=== PATIENT | male | born 1990 | race Caucasian/White ===

== ENCOUNTER 2022-01-19 08:06 | Emergency (ER) | payer BC, OTHER ==
[~2022-01-19] VITALS: Ht 193 cm; Wt 82.7 kg
--- NOTE | 2022-01-19 10:22 | NUR ---
Pt moved into ER bed 1
[2022-01-19 11:38] VITALS: BP 97/64
== END 2022-01-19 11:45 | disposition home or self-care (01) ==
LOC: ER 08:07
DX: S01.01XA Laceration without foreign body of scalp, initial encounter (principal); Z72.89 Other problems related to lifestyle; Z88.0 Allergy status to penicillin; W19.XXXA Unspecified fall, initial encounter; Y93.89 Activity, other specified; Y92.89 Other specified places as the place of occurrence of the external cause; Y99.8 Other external cause status
CPT/HCPCS: 12002; 70450; 72125; 99285; L0172; A6258